=== PATIENT | female | born 1950 | race Caucasian/White ===

== ENCOUNTER 2016-07-21 11:11 | Observation (INO) ==
[2016-07-21] MEDS ORDERED: Aspirin 81 MG TAB.CHEW PO ONE (11:18)
--- NOTE | 2016-07-21 11:21 | Emergency Department Note ---
Disposition Clinical Impression: Chest pain Qualifiers: Chest pain type: unspecified Qualified Code(s): R07.9 - Chest pain, unspecified Disposition: Admitted As Inpatient Condition: Fair Referrals: Atif Desai MD [Primary Care Provider] - Forms: ED Satisfaction Letter Time of Disposition: 13:33 Chest Pain HPI - General Chief Complaint: ED Chest Pain Stated Complaint: L sided numbness Time Seen by Provider: 07/21/16 11:14 Source: patient Limitations: no limitations Vital Signs Reviewed: Yes Nursing Notes Reviewed: Yes - History of Present Illness HPI Narrative: 66-year-old comes in complaining of chest discomfort. Patient was seen at [facility] about 36 hours ago workup for cardiac was negative. Patient followed up with her family doctor today continuing to have this intermittent left chest pressure with some numbness in her left arm. EKG done today in the office showed new T-wave inversion in V1 and 2 and 3. Patient does have a history of hypertension hyperlipidemia patient is a nonsmoker patient does have a family history of brothers who are alive father at 58 of heart disease. Blood pressure in the office was noted to be 160/99 on arrival here diastolic is above 100. Pt complaint: chest pain Onset (ago): day(s) Duration: intermittent Onset: during exertion Pain Location: substernal, left chest Severity: moderate Severity scale (1-10): 8 Quality: tightness, heaviness Pain Radiation: none Improves with: nothing Worsens with: exertion Associated symptoms: Reports: dyspnea - Related Data Home Medications Medication Instructions Recorded Confirmed Albuterol Neb [AccuNeb] 3 ml AER Q6H PRN 07/19/16 07/19/16 Albuterol Sulfate [Proair Hfa] 1 puff IH Q4H 07/19/16 07/19/16 Lovastatin [Mevacor] 40 mg PO HS 07/19/16 07/19/16 Sertraline [Zoloft] 50 mg PO DAILY 07/19/16 07/19/16 Tramadol HCl [Ultram] 50 mg PO BID 07/19/16 07/19/16 Allergies Allergy/AdvReac Type Severity Reaction Status Date / Time No Known Allergies Allergy Verified 07/19/16 19:10 Constitutional: Denies: fever, chills, weakness, weight change Eyes: Denies: eye pain, eye discharge, vision change ENT ED: Denies: ear pain, throat pain, dental pain, hearing loss, epistaxis, congestion, dysphagia Cardiovascular: Reports: chest pain. Denies: palpitations, dyspnea on exertion , edema, syncope Respiratory: Denies: cough, dyspnea, wheezes, hemoptysis, stridor Gastrointestinal: Denies: abdominal pain, nausea, vomiting, diarrhea, constipation, hematemesis, melena, hematochezia Genitourinary: Denies: dysuria, frequency, hematuria, discharge Musculoskeletal: Denies: back pain, neck pain, arthralgia, myalgia Integumentary: Denies: rash, abrasion, lesions Neurological: Denies: headache, weakness, numbness, paresthesias, confusion, abnormal gait, vertigo Psychiatric: Denies: anxiety, depression, suicidal thoughts, homicidal thoughts , auditory hallucinations, visual hallucinations Endocrine: Denies: fatigue Hematological/Lymphatic: Denies: easy bleeding, easy bruising Allergic/Immunologic: Denies: facial swelling, urticaria Chest Pain PMH - Past Medical History Medical history: Reports: asthma, hyperlipidemia, other Psychiatric history: Reports: anxiety - Social History Smoking Status: Never smoker Alcohol use: Reports: none Drug use: Reports: none Physical Exam - General Limitations: no limitations General appearance: alert, in no apparent distress - Head Head exam: atraumatic, normocephalic, normal inspection - Eye Eye exam: Present: normal appearance, PERRL, EOMI - ENT ENT exam: normal exam, normal oropharynx, mucous membranes moist - Neck Neck exam: Present: normal inspection, full ROM, trachea midline - Chest Chest inspection: Present: normal inspection, symmetric chest wall rise - Respiratory Respiratory exam: Present: normal lung sounds bilaterally - Cardiovascular Cardiovascular exam: Present: regular rate, normal rhythm, normal heart sounds - Abdominal Exam Abdominal exam: Present: soft, Non-Tender. Absent: tenderness, distention, guarding, rebound, rigidity - Extremities Exam Extremities exam: Present: normal inspection, full ROM. Absent: tenderness, pedal edema - Expanded Lower Extremity Exam Neurovascular/Tendon exam: Absent: motor deficit, sensory deficit, tendon deficit Gait: observed and normal - Back Exam Back exam: Present: normal inspection, full ROM. Absent: tenderness - Neurological Exam Neurological exam: Present: alert, oriented X3 - Psychiatric Psychiatric exam: Present: normal affect, normal mood - Skin Skin exam: Present: warm, dry, intact, normal color Course - Reevaluation(s) Reevaluation #1: 66-year-old with risk factors who comes in complaining of intermittent chest pain for the last several days. Patient was seen in an outside ER workup was negative sent home. Seen by the family doctor today EKG today showed new T-wave inversion in the precordial leads. Her in the emergency department is negative however in light of the patient's symptoms risk factors and EKG findings patient will be admitted. Time: 13:32 Vital Signs Temperature 99.6 F 07/21/16 11:14 Pulse Rate 90 07/21/16 11:14 Respiratory Rate 16 07/21/16 11:14 Blood Pressure 176/130 07/21/16 11:14 O2 Sat by Pulse Oximetry 94 L 07/21/16 11:14 Temperature 99.6 F 07/21/16 11:14 Pulse Rate 83 07/21/16 13:18 Respiratory Rate 16 07/21/16 13:18 Blood Pressure 152/99 07/21/16 13:18 O2 Sat by Pulse Oximetry 97 07/21/16 13:18 Oxygen Delivery Oxygen Delivery Room Air Chest Pain - Lab Data Lab results reviewed: Yes I reviewed the patient's lab results. Result diagrams: 07/21/16 11:21 07/21/16 11:21 Lab Results 07/21/16 07/21/16 07/21/16 Range/Units 11:21 11:21 11:21 WBC 10.3 (4.3-11.1) K/mcL RBC 5.52 H (3.82-4.97) M/mcL Hgb 15.6 H (11.5-15.4) g/dL Hct 46.7 H (35.3-44.9) % MCV 84.6 (83.0-100.0) fL MCH 28.3 (28.0-33.3) pg MCHC 33.4 (31.6-35.5) g/dL RDW 13.0 (11.5-14.5) % Plt Count 356 (140-400) K/mcL MPV 9.9 (9.4-12.4) fL Immature Gran % 0.4 (0-4) % Seg Neutrophils % 73.1 % Lymphocytes % 17.5 % Monocytes % 7.8 % Eosinophils % 0.6 % Basophils % 0.6 % Neutrophils # 7.5 (1.6-8.9) K/mcL Lymphocytes # 1.8 (0.6-4.6) K/mcL Monocytes # 0.8 (0.0-1.3) K/mcL Eosinophils # 0.1 (0.0-0.6) K/mcL Basophils # 0.1 (0.0-0.2) K/mcL PT 11.5 (9.4-12.1) Seconds INR 1.1 APTT 30.9 (26.0-36.0) Seconds Sodium (136-145) mEq/L Potassium (3.5-4.5) mEq/L Chloride (98-109) mEq/L Carbon Dioxide (19-29) mEq/L BUN (7-20) mg/dL Creatinine (0.57-1.11) mg/dL Est GFR ( Amer) (> 60) Est GFR (Non-Af Amer) (> 60) BUN/Creatinine Ratio (6-26) Glucose (70-99) mg/dL Calculated Osmolality (280-300) Calcium (8.6-10.8) mg/dL Troponin I (0-0.03) ng/mL B-Natriuretic Peptide 18 (0-100) pg/mL Urine Color (Yellow) Urine Clarity (Clear) Urine pH (5.0-8.0) pH Units Ur Specific [place] (1.010-1.025) Urine Protein (Neg-Trace) mg/dL Urine Glucose (UA) (Normal) mg/dL Urine Ketones (Negative) mg/dL Urine Blood (Negative) Urine Nitrite (Negative) Urine Bilirubin (Negative) Urine Urobilinogen (Normal) mg/dL Ur Leukocyte Esterase (Negative) Urine Microscopic RBC (0-3) per hpf Urine Microscopic WBC (0-3) per hpf Ur Squamous Epith Cells (None-Few) per lpf Urine Bacteria (None-Few) per hpf Hyaline Casts (None-Few) per lpf Ur Culture Indicated? (NO) 07/21/16 07/21/16 07/21/16 Range/Units 11:21 11:21 12:37 WBC (4.3-11.1) K/mcL RBC (3.82-4.97) M/mcL Hgb (11.5-15.4) g/dL Hct (35.3-44.9) % MCV (83.0-100.0) fL MCH (28.0-33.3) pg MCHC (31.6-35.5) g/dL RDW (11.5-14.5) % Plt Count (140-400) K/mcL MPV (9.4-12.4) fL Immature Gran % (0-4) % Seg Neutrophils % % Lymphocytes % % Monocytes % % Eosinophils % % Basophils % % Neutrophils # (1.6-8.9) K/mcL Lymphocytes # (0.6-4.6) K/mcL Monocytes # (0.0-1.3) K/mcL Eosinophils # (0.0-0.6) K/mcL Basophils # (0.0-0.2) K/mcL PT (9.4-12.1) Seconds INR APTT (26.0-36.0) Seconds Sodium 140 (136-145) mEq/L Potassium 3.6 (3.5-4.5) mEq/L Chloride 103 (98-109) mEq/L Carbon Dioxide 22 (19-29) mEq/L BUN 7 (7-20) mg/dL Creatinine 0.85 (0.57-1.11) mg/dL Est GFR ( Amer) > 60 (> 60) Est GFR (Non-Af Amer) > 60 (> 60) BUN/Creatinine Ratio 8 (6-26) Glucose 104 H (70-99) mg/dL Calculated Osmolality 288 (280-300) Calcium 10.0 (8.6-10.8) mg/dL Troponin I 0.00 (0-0.03) ng/mL B-Natriuretic Peptide (0-100) pg/mL Urine Color Yellow (Yellow) Urine Clarity Clear (Clear) Urine pH 6.5 (5.0-8.0) pH Units Ur Specific [place] 1.013 (1.010-1.025) Urine Protein Negative (Neg-Trace) mg/dL Urine Glucose (UA) Normal (Normal) mg/dL Urine Ketones 15 H (Negative) mg/dL Urine Blood Small H (Negative) Urine Nitrite Negative (Negative) Urine Bilirubin Negative (Negative) Urine Urobilinogen Normal (Normal) mg/dL Ur Leukocyte Esterase Trace H (Negative) Urine Microscopic RBC 3-5 H (0-3) per hpf Urine Microscopic WBC 0-3 (0-3) per hpf Ur Squamous Epith Cells Many H (None-Few) per lpf Urine Bacteria None Seen (None-Few) per hpf Hyaline Casts None Seen (None-Few) per lpf Ur Culture Indicated? YES A (NO) - Radiology Data Radiology results reviewed: Yes I reviewed the patient's radiology results. Chest X-Ray 07/21/16 11:18 IMPRESSION: No acute cardiopulmonary process. D/ : / 07/21/2016 11:42:19 Jaiden Pruitt MD / [email or web address] Interpreting Provider: Jaiden Pruitt MD - EKG Data EKG attestation: Yes I reviewed and interpreted this EKG. EKG shows normal: sinus rhythm Rate: normal Rhythm: NSR T wave inversions noted in: v1, v2, v3, v4 Interpretation: nonspecific ST-T wave changes, other (New T-wave inversion in V1 and V2 V3 and V4) Heart Score - Score History: Moderately Suspicious EKG: Non Specific repolarisation Disturbance Age: Greater than 65 Risk Factors: Equal/Greater than 3 risk factor or history of atherosclerotic disease Troponin: Less than normal limit HEART Score Total: 6 NIH Stroke Scale - Level of Consciousness LOC: Alert - LOC Questions LOC Questions: Answers both correctly - LOC Commands LOC Commands: Performs both correctly - Best Gaze Best Gaze: Normal - Visual Visual: No visual loss - Facial Palsy Facial Palsy: Normal - Motor Arms Motor Arm-Left: No drift for 10 seconds Motor Arm-Right: No drift for 10 seconds - Motor Legs Motor Leg-Left: No drift for 5 seconds Motor Leg-Right: No drift for 5 seconds - Limb Ataxia Limb Ataxia: Normal, No Ataxia - Sensory Sensory: Normal - Best Language Best Language: No aphasia - Dysarthria Dysarthria: Normal - Extinction and Inattention Extinction and Inattention: Normal - NIHSS Total Score NIHSS Total Score: 0
[2016-07-21 11:26] LABS: Basophils # 0.1 K/mcL (0.0-0.2); Basophils % 0.6 %; Eosinophils # 0.1 K/mcL (0.0-0.6); Eosinophils % 0.6 %; Hematocrit 46.7 % (35.3-44.9); Hemoglobin 15.6 g/dL (11.5-15.4); Immature Granulocytes % 0.4 % (0-4); Lymphocytes # 1.8 K/mcL (0.6-4.6); Lymphocytes % 17.5 %; Mean Corpuscular HGB Conc 33.4 g/dL (31.6-35.5); Mean Corpuscular Hemoglobin 28.3 pg (28.0-33.3); Mean Corpuscular Volume 84.6 fL (83.0-100.0); Mean Platelet Volume 9.9 fL (9.4-12.4); Monocytes # 0.8 K/mcL (0.0-1.3); Monocytes % 7.8 %; Neutrophils # 7.5 K/mcL (1.6-8.9); Platelet Count 356 K/mcL (140-400); Red Blood Count 5.52 M/mcL (3.82-4.97); Segmented Neutrophils % 73.1 %
[2016-07-21 11:34] LABS: INR 1.1; Prothrombin Time 11.5 Seconds (9.4-12.1)
[2016-07-21 11:37] LABS: Activated Partial Thrombo Time 30.9 Seconds (26.0-36.0)
[2016-07-21 11:54] LABS: BUN/Creatinine Ratio 8 (6-26); Blood Urea Nitrogen 7 mg/dL (7-20); Carbon Dioxide 22 mEq/L (19-29); Chloride 103 mEq/L (98-109); Glucose 104 mg/dL (70-99); Osmolality,Calculated 288 (280-300); Potassium 3.6 mEq/L (3.5-4.5); Sodium 140 mEq/L (136-145); eGFR For African Americans > 60 (> 60); eGFR For Non-African Americans > 60 (> 60)
[2016-07-21] MEDS ORDERED: Nitroglycerin 1 INCH/GM PACKET TP ONE (12:32)
[2016-07-21 12:46] LABS: Bilirubin,Urine Negative (Negative); Blood,Urine Small (Negative); Clarity,Urine Clear (Clear); Color,Urine Yellow (Yellow); Glucose,Urine (UA) Normal (Normal); Ketones,Urine 15 mg/dL (Negative); Leukocyte Esterase,Urine Trace (Negative); Nitrite,Urine Negative (Negative); PH,Urine 6.5 pH Units (5.0-8.0); Protein,Urine Negative (Neg-Trace); Specific Gravity,Urine 1.013 (1.010-1.025); Urobilinogen,Urine Normal (Normal)
[2016-07-21 12:48] LABS: Bacteria,Urine None Seen per hpf (None-Few); Hyaline Casts,Urine None Seen per lpf (None-Few); Squamous Epithelial Cell,Urine Many per lpf (None-Few); WBC,Urine 0-3 per hpf (0-3)
[2016-07-21] MEDS ORDERED: Acetaminophen 325 MG TABLET PO PRN (13:41)
[2016-07-21] MEDS ORDERED: Naloxone 0.4 MG/ML INJ IVP PRN (13:41)
[2016-07-21] MEDS ORDERED: *HR* HYDROcodone/Acet 5/325 mg TABLET PO PRN (13:41)
[2016-07-21] MEDS ORDERED: Ondansetron 4 MG/2 ML VIAL IVP PRN (13:41)
[2016-07-21] MEDS ORDERED: *HR* Morphine 2 MG/ML SYRINGE IVP PRN (13:41)
[2016-07-21] MEDS ORDERED: Albuterol 2.5 MG/3 ML NEBULIZER IH PRN (14:40)
--- NOTE | 2016-07-21 14:41 | Internal Med History&Physical ---
<Ting Baker - Last Filed: 07/21/16 15:50> Date of Encounter: 07/21/16 Time of Encounter: 14:41 Assessment and Plan (1) Chest pain Current visit: Yes Status: Acute 1 has been experiencing chest pain for the past 2 days had workup and [facility] which was negative. First cardiac troponin are ER negative. There was some T- wave inversions V3. 4. Patient was given nitroglycerin and aspirin in the ER. We will continue to cycle cardiac troponins 2 nitroglycerin as needed morphine as needed oxygen as needed 3 we will continue with aspirin and statin will add low-dose beta negra 4 cardiac diet will make nothing by mouth after midnight 5 cardiac stress in the a.m. 6 we will obtain cardiac echo Qualifiers: Chest pain type: unspecified Qualified Code(s): R07.9 - Chest pain, unspecified (2) Asthma Current visit: No Status: Chronic 1 presently stable we will continue with bronchodilators as needed Qualifiers: Asthma severity: unspecified severity Asthma complication type: uncomplicated Qualified Code(s): J45.909 - Unspecified asthma, uncomplicated (3) Elevated blood pressure reading without diagnosis of hypertension Current visit: Yes Status: Acute 1 patient states no history of hypertension she does not take any medications at home. Systolic 150s 140s diastolic 90s. Nitropaste applied. We will start her on low-dose beta nerga may need to add a second agent prior to discharge- goal is to maintain systolic less than 140 will monitor (4) DVT prophylaxis Current visit: Yes Status: Acute 1 encourage early ambulation AGNES moyer Internal Medicine - H&P: HPI Chief complaint: cp Admitted From: Home Plans for Post Hospital Care: Home History of present illness: Ms. Becker is a 66 year old female past medical history of asthma and hyperlipidemia anxiety. Granted patient she has been experiencing chest pain for the past 2. She descries the pain as a mid epigastric pressure feels as if someone sitting on her chest 10 /10 radiates to left arm she experienced some numbness also some diaphoresis. There were no aggravating or relieving factors. The pressure was constant and would vary in intensity She went to [facility] approximately 36 hours ago and had a cardiac workup which was negative. She was sent home and advised her family physician. Today she continued to have intermittent chest pressure and numbness in her left arm she went to see her family doctor EKG was completed in the office which showed new T-wave inversion in V1 2 and 3 patient denies any history of hypertension however blood pressure was elevated in the office at 160/99 she does have a family history her father at 58 of heart disease. She was sent to the ER for evaluation. Upon arrival to the ER was noted that her diastolic was above 100. First cardiac troponin was negative chest x-ray was negative. EKG with T- wave inversion V3 V4 she was given aspirin nitroglycerin paste and admitted for further workup and evaluation. Presently patient describes chest heaviness which is faint 2/10. She does have reproducible pain to left chest on palpation. She denies any shortness of breath nausea or diaphoresis. She does have elevated blood pressure diastolic in the 90s. I reviewed this case with Dr. cheng to who agrees with the plan Past Med Surg Social Fam HX - Past Medical History Medical history: asthma, hyperlipidemia, other Psychiatric history: anxiety - Social History Smoking Status: Never smoker Smokeless Tobacco Status: No Alcohol use: none Drug use: none - Family History Father Age at : 58 Cause of : Heart attack Hx Family Cardiac Disorders: Yes Internal Medicine - H&P: Meds Albuterol Neb [AccuNeb] 3 ml AER Q6H PRN 07/19/16 [History] Albuterol Sulfate [Proair Hfa] 1 puff IH Q4-6H PRN 07/19/16 [History] Lovastatin [Mevacor] 40 mg PO HS 07/19/16 [History] Sertraline [Zoloft] 50 mg PO DAILY 07/19/16 [History] Tramadol HCl [Ultram] 50 mg PO BID 07/19/16 [History] Aspirin 81 mg PO DAILY 07/21/16 [History] Allergies No Known Allergies Allergy (Verified 07/21/16 14:19) All Systems PM: A 10-system review of systems was performed and is negative for pertinent findings except as documented above in the HPI. - Constitutional Constitutional: no chills, no fever(s), no night sweats - EENT Eyes: no change in vision, no discharge, no pain, no photophobia - Cardiovascular Cardiovascular ROS IM: chest pain - Respiratory Respiratory: no cough, no dyspnea, no wheezing, no excessive phlegm production - Gastrointestinal Gastrointestinal: no abdominal pain, no diarrhea, no hematemesis, no hematochezia, no melena, no nausea, no vomiting - Genitourinary Genitourinary: no change in urinary stream, no dysuria, no flank pain, no hematuria - Musculoskeletal Musculoskeletal ROS IM: no numbness, no tingling - Neurological Neurological ROS: no confusion, no convulsions, no focal weakness, no numbness, no tingling, no tremor(s) - Constitutional Vitals: Temp Pulse Resp BP Pulse Ox 99.6 F 83 18 157/99 97 07/21/16 11:14 07/21/16 13:18 07/21/16 14:16 07/21/16 14:16 07/21/16 13:18 General appearance: Present: A&O X 3, answers questions appropriately - Head Head exam: Present: atraumatic, normocephalic - Respiratory Respiratory exam: Present: CTAB. Absent: accessory muscle use, rales, rhonchi, wheezes - Cardiovascular Cardiovascular exam: Present: RRR, +S1, +S2. Absent: diastolic murmur, gallop, rubs, systolic murmur - GI/Abdominal GI/Abdominal exam: Present: normal bowel sounds, soft, no peritoneal signs. Absent: distended, tenderness - Extremities Exam Extremities exam: Present: warm, radial pulses palpable and symetrical. Absent : calf tenderness, cyanotic, pedal edema - Neurological Exam Neurological exam: Present: CN II-XII intact, oriented X3, no focal deficits. Absent: pronater drift, facial droop, speech deficit - Skin Skin exam: Present: dry, intact Internal Med - H&P Results - Labs CBC & Chem 7: 07/21/16 11:21 07/21/16 11:21 Labs: Short CBC 07/21/16 Range/Units 11:21 WBC 10.3 (4.3-11.1) K/mcL Hgb 15.6 H (11.5-15.4) g/dL Hct 46.7 H (35.3-44.9) % Plt Count 356 (140-400) K/mcL Neutrophils # 7.5 (1.6-8.9) K/mcL BMP 07/21/16 11:21 Sodium 140 Potassium 3.6 Chloride 103 Carbon Dioxide 22 BUN 7 Creatinine 0.85 Glucose 104 H Calcium 10.0 Cardiac Enzymes 07/21/16 Range/Units 11:21 Troponin I 0.00 (0-0.03) ng/mL Urine 07/21/16 Range/Units 12:37 Urine Color Yellow (Yellow) Urine Clarity Clear (Clear) Urine pH 6.5 (5.0-8.0) pH Units Ur Specific [place] 1.013 (1.010-1.025) Urine Protein Negative (Neg-Trace) mg/dL Urine Glucose (UA) Normal (Normal) mg/dL - EKG Data EKG shows normal: sinus rhythm - EKG Data When compared to previous EKG: there is no significant change EKG comments: 07/21/16 15:54 Some T-wave inversion in V3 V4-I reviewed EKG with Dr. Cheng - Impressions ITS Impressions Chest X-Ray 07/21/16 11:18 IMPRESSION: No acute cardiopulmonary process. D/ / 07/21/2016 11:42:19 Jaiden Pruitt MD / paul Interpreting Provider: Jaiden Pruitt MD - VTE Reasons for not Prescribing Prophylaxis: Treatment not Indicated - Low risk for VTE <Freddie Cheng - Last Filed: 07/21/16 16:32> Date of Encounter: 07/21/16 Internal Medicine - H&P: HPI History of present illness: Ms. Becker is a 66 year old female All Systems PM: A 10-system review of systems was performed and is negative for pertinent findings except as documented above in the HPI. - Constitutional Vitals: Temp Pulse Resp BP Pulse Ox 98.1 F 84 16 164/93 94 L 07/21/16 15:07 07/21/16 15:07 07/21/16 15:07 07/21/16 15:07 07/21/16 15:07 Internal Med - H&P Results - Labs CBC & Chem 7: 07/21/16 11:21 07/21/16 11:21 - Attending Attestation I examined this patient and my medical decision-making was reviewed with the Advanced Practice Provider. I agree with the documented findings, disposition and treatment plan as described except to the extent set forth below. Patient reports epigastric and left upper quadrant pain, I reviewed her EKG, shows nonspecific ST and T-wave changes in leads V2 to V4. We will place in observation, telemetry, echocardiogram, serial troponin. I will add LFTs and lipase to the workup to rule out pancreatitis, gastritis and hepatitis.
[2016-07-21 17:40] LABS: Albumin/Globulin Ratio 1.2 (1.1-2.2); Bilirubin,Direct 0.3 mg/dL (0.0-0.5); Bilirubin,Indirect 0.7 mg/dL (0.0-1.2); Globulin 3.4 g/dL (2.4-3.5); Total Protein 7.4 g/dL (6.0-8.3)
[2016-07-22 01:32] LABS: Basophils # 0.1 K/mcL (0.0-0.2); Basophils % 0.5 %; Eosinophils # 0.1 K/mcL (0.0-0.6); Eosinophils % 0.8 %; Hematocrit 39.8 % (35.3-44.9); Immature Granulocytes % 0.2 % (0-4); Lymphocytes # 2.8 K/mcL (0.6-4.6); Mean Corpuscular HGB Conc 33.7 g/dL (31.6-35.5); Mean Corpuscular Hemoglobin 28.3 pg (28.0-33.3); Mean Corpuscular Volume 84.1 fL (83.0-100.0); Mean Platelet Volume 10.4 fL (9.4-12.4); Monocytes # 1.2 K/mcL (0.0-1.3); Monocytes % 12.2 %; Neutrophils # 5.9 K/mcL (1.6-8.9); Platelet Count 286 K/mcL (140-400); Red Blood Count 4.73 M/mcL (3.82-4.97); Red Cell Distribution Width 12.9 % (11.5-14.5); Segmented Neutrophils % 58.3 %
[2016-07-22 01:36] LABS: Hemoglobin 13.4 g/dL (11.5-15.4)
[2016-07-22 01:48] LABS: BUN/Creatinine Ratio 9 (6-26); Blood Urea Nitrogen 7 mg/dL (7-20); Calcium 9.1 mg/dL (8.6-10.8); Carbon Dioxide 25 mEq/L (19-29); Chloride 105 mEq/L (98-109); Chol/HDL Ratio 3.1 (0-4.9); Cholesterol 163 mg/dL (< 200); Glucose 94 mg/dL (70-99); HDL Cholesterol 52 mg/dL (40-59); LDL Cholesterol,Calculated 89 mg/dL (0-99); Osmolality,Calculated 288 (280-300); Potassium 3.3 mEq/L (3.5-4.5); Sodium 140 mEq/L (136-145); Triglycerides 112 mg/dL (< 150); eGFR For African Americans > 60 (> 60); eGFR For Non-African Americans > 60 (> 60)
[2016-07-22] MEDS ORDERED: Aspirin 81 MG TAB.CHEW PO SCH (09:00)
[2016-07-22] MEDS: Regadenoson 0.4 MG/5 ML SYRINGE IVP ONE ×2 (10:23→10:32)
[2016-07-22 11:07] VITALS: BP 135/87
--- NOTE | 2016-07-22 11:36 | Nuclear Medicine Stress Report ---
Regadenoson Nuclear Stress Name: Oralia Becker Date of Study: 07/22/2016 Date: 1950 Ht: 63.0 in Medical Record#: [id number] Age: 66 Wt: 176.0 lb Gender: Female Order #: [id number] Location: [facility] Room: [facility] Supervising Provider: Niko Sumner CNP Reading Physician: Rl Bro MD, [facility] Ordering Physician: Johnnie Menjivar MD Primary Care Physician: Atif Desai Jr, MD Stress Technologist: Alex Sweet TECHNICIAN [employer]MENT, [facility] Auto Appraiser: Tao Hernandez Indications: Chest Pain Impression: Pharmacologic stress ECG was negative for ischemia. Gated LVEF > 70%. Perfusion imaging was negative for ischemia or infarct. History: Hypercholesteremia Stress Test Summary: Stress Test Type: Pharmacologic Regadenoson 0.4mg/5ml given IV Baseline Information: Initial Heart Rate: 98 Blood Pressure: 128/84 Stress Information: Test Terminated Due to (primary): As per protocol Maximum Blood Pressure: 118/80 Maximum Heart Rate: 142 Percent Maximum Heart Rate Achieved: 93 Double Product: [id number] Symptoms: Shortness of breath, Nausea Nuclear Summary: SPECT myocardial perfusion imaging using Tc99m Sestamibi given intravenously was performed at rest and following cardiac stress testing. The resting images were obtained following initial dose of 10.8 mCi. Following stress an additional dose of 32.1 mCi was given at peak exercise or 30 seconds post regadenoson infusion. Findings: Stress Note * Resting ECG demonstrated sinus rhythm, non-specific ST-T wave abnormality. * No baseline arrhythmias were noted. * Patient had no chest pain during stress. * One ventricular couplet was noted during stress. No other ectopy was seen. * Pharmacologic stress ECG was negative for ischemia. Hemodynamic responses * Patient demonstrated a tachycardic response to regadenoson (peak HR 142 bpm, sinus tachycardia). Heart rate slowly returned to baseline in recovery. Study Quality * Study quality is average. Gated EF > 70% * Gated LVEF > 70%. Left Ventricle * The left ventricle is not dilated. * Normal Segmental Perfusion in rest. * Normal segmental perfusion in stress. TID * No evidence of transient ischemic dilatation. Updated by Rl Bro MD, F[facility] on 07/22/2016 11:30:23 AM electronically signed on 07/22/2016 11:31:05 AM with status of Final
--- NOTE | 2016-07-22 11:56 | ECHO - Doppler Report ---
Echocardiogram Name: Oralia Becker Date of Study: 07/22/2016 Date: 1950 Ht: 63.0 in Medical Record#: [id number] Age: 66 Wt: 176.0 lb Gender: Female BSA: 1.83 Order #: [id number] [facility] Room #: [id number] Reading Physician: Rl Bro MD, [facility] Quarter Doper: Muriel Leary RVT Ordering Physician: Ting Baker CNP Primary Physician: Atif Desai Jr, MD Indications: Chest pain Impressions: Technically sub-optimal due to poor echocardiographic windows. Normal left ventricular size and systolic function, LVEF 60-65%. Mild left ventricular diastolic dysfunction. Normal right ventricular size and function. Cardiac valves were not well visualized. There is no evidence of significant valvular dysfunction. Unable to estimate RVSP due to lack of TR jet. Left Ventricular Wall Motion: Rest Echo Findings All wall segments showed normal motion. Findings: Study Quality * Technically sub-optimal due to poor echocardiographic windows. ECG Findings * Normal sinus rhythm. Left Ventricle * Normal left ventricular size and systolic function, LVEF 60-65%. * Normal LV wall thickness. * Mild left ventricular diastolic dysfunction. Right Ventricle * Normal right ventricular size and function. Left Atrium * Normal left atrial size. Right Atrium * Normal right atrial size. Aorta * Aortic root was not well visualized. Appears normal in size. Pericardium * There is no pericardial effusion present. IVC * Normal IVC dimensions and inspiratory collapse. Aortic Valve * Aortic valve not well visualized. * No aortic stenosis. * No aortic regurgitation. Mitral Valve * Mitral valve not well visualized. * No mitral stenosis. * No mitral regurgitation. Tricuspid Valve * Tricuspid valve not well visualized. * No tricuspid stenosis. * Trace tricuspid regurgitation. * Unable to estimate RVSP due to lack of TR jet. Pulmonic Valve * Pulmonic valve not well visualized. * No pulmonic stenosis. * No pulmonic regurgitation. History Hypercholesteremia Family History of CAD Measurements: BP: 148/ 83 2D Normal Values RVIDd: 2.50 cm IVSd: 1.00 cm 0.6 - 1.0 cm LVIDd: 4.20 cm 3.7 - 5.6 cm LVPWd: 1.00 cm 0.6 - 1.1 cm LVIDs: 2.90 cm 1.5 - 3.6 cm AO: 2.90 cm < 4.0 cm LA volume: 16.8 Mitral Valve Peak E:.44 m/sec Peak A:.86 m/sec E/A Ratio:0.5 Updated by Rl Bro MD, [facility] on 07/22/2016 11:49:56 AM electronically signed on 07/22/2016 11:50:46 AM with status of Final Wall Motion Danielson: 1=Normal, 2=Hypokinesis, 3=Akinesis, 4=Dyskinesis, 5=Aneurysmal, 6=Hyperkinetic, X=Not Visualized (Blank)=Missing
--- NOTE | 2016-07-22 12:57 | Discharge Summary ---
Date of Encounter: 07/22/16 Time of Encounter: 12:55 - Discharge Diagnosis (1) HTN (hypertension) Priority: Secondary Status: Acute Comments: Patient with extremely elevated BP on admission Responding to BB No prior hx of same, however patient has a loud s2 Will discharge on current dose of Metoprolol Qualifiers: Hypertension type: essential hypertension Qualified Code(s): I10 - Essential (primary) hypertension (2) Hyperlipidemia Priority: Secondary Status: Chronic Comments: Continue Lovastatin Qualifiers: Hyperlipidemia type: unspecified Qualified Code(s): E78.5 - Hyperlipidemia , unspecified (3) Chest pain Priority: Primary Status: Acute Comments: Troponin negative X3 EKG non-specific changes ECHO with N LV function, mild LVDD Stress test was negative for ischemia, Gated LVEF >70% Qualifiers: Chest pain type: unspecified Qualified Code(s): R07.9 - Chest pain, unspecified (4) Asthma Priority: Secondary Status: Chronic Comments: Resume home meds Qualifiers: Asthma severity: unspecified severity Asthma complication type: uncomplicated Qualified Code(s): J45.909 - Unspecified asthma, uncomplicated - Discharge Medications Home Medications: Albuterol Neb [AccuNeb] 3 ml AER Q6H PRN 07/19/16 [History] Albuterol Sulfate [Proair Hfa] 1 puff IH Q4-6H PRN 07/19/16 [History] Lovastatin [Mevacor] 40 mg PO HS 07/19/16 [History] Sertraline [Zoloft] 50 mg PO DAILY 07/19/16 [History] Tramadol HCl [Ultram] 50 mg PO BID 07/19/16 [History] Aspirin 81 mg PO DAILY 07/21/16 [History] Metoprolol [Lopressor] 25 mg PO BID #60 tablet 07/22/16 [Rx] Allergies/Adverse Reactions: Allergies No Known Allergies Allergy (Verified 07/21/16 14:19) Procedures/tests Complete & Pending: Procedures Performed prior 72 hours Category Date Time Status NM james perf SPECT multi [NM] Routine Exams 07/21/16 15:01 Taken EV echocardiogram Routine Y 07/22/16 14:37 Completed SP pharm nuclear stress Routine Y 07/22/16 08:00 Completed Date of admission: 07/21/16 14:05 Primary care physician: Atif Desai MD Discharging clinician: Johnnie Menjivar Anticipated date of discharge: 07/22/16 - Patient Status Disposition: Home, Self-Care Condition: Fair Functional capacity at discharge: independent ambulation Overall status at discharge: patient is back to baseline - Discharge Instructions Follow Up With: Atif Desai MD [Primary Care Provider] - - Diet and Activity Activity: resume usual activities as tolerated Diet: low fat, low cholesterol, low salt diet Interval History: See below Hospital course: Ms. Becker is a 66 year old female hospitalized for evaluation for chest pain She is seen at bedside, pain free in no distress and with no complains Work up is negative for any acute causes of chest pain However, BP was elevated to >180/110 on admission, controlled on metoprolol Resume other home meds Follow up wit PCP - Time Spent with Patient Total time spent providing and/or coordinating discharge services: Less than 30 minutes - Constitutional Vitals: Temp Pulse Resp BP Pulse Ox 97.9 F 91 18 135/87 95 07/22/16 11:05 07/22/16 11:05 07/22/16 11:05 07/22/16 11:05 07/22/16 11:05 General appearance: Present: A&O X 3, pleasant, no acute distress, answers questions appropriately - Head Head exam: Present: atraumatic, normocephalic - Eye Eye exam: Present: PERRL, conjuntiva pink, sclera anicteric Pupils: Present: PERRL - Neck Neck exam general surgery: Present: supple, trachea midline. Absent: lymphadenopathy - Respiratory Respiratory exam: Present: CTAB. Absent: accessory muscle use, rales, rhonchi, wheezes - Cardiovascular Cardiovascular exam: Present: RRR, +S1, +S2. Absent: diastolic murmur, gallop, rubs, systolic murmur - GI/Abdominal GI/Abdominal exam: Present: normal bowel sounds, soft, no peritoneal signs. Absent: distended, tenderness - Extremities Exam Extremities exam: Present: warm, radial pulses palpable and symetrical. Absent : calf tenderness, cyanotic, pedal edema - Neurological Exam Neurological exam: Present: CN II-XII intact, oriented X3, no focal deficits. Absent: pronater drift, facial droop, speech deficit - Skin Skin exam: Present: dry, intact - VTE Reasons for not Prescribing Prophylaxis: Treatment not Indicated - Low risk for VTE
--- NOTE | 2016-07-23 21:48 | Electrocardiograph Report ---
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
== END 2016-07-22 14:30 | disposition home or self-care (01) ==
LOC: EMEROO 11:11 → 2ANU 11:11
PROVIDERS: ADMIT Internal Medicine; ATTEND Internal Medicine